=== PATIENT | male | born 1945 | race Caucasian/White ===

== ENCOUNTER 2022-06-29 15:25 | Inpatient (IN) | payer MEDICAID, MEDICARE ==
[~2022-06-29] VITALS: Ht 162.6 cm; Wt 57.6 kg
[2022-06-29 16:19] VITALS: BP_SYST 157
[2022-06-29] MEDS ORDERED: NACL 0.9% 1,000 ML IV ONE (16:30)
[2022-06-29 16:52] LABS: BASOPHILS % (AUTO) 0.4 % (0.0-2.0); EOSINOPHILS % (AUTO) 0.2 % (0.0-4.0); HEMATOCRIT 33.6 % (36-54); HEMOGLOBIN 11.6 g/dL (14.0-18.0); LYMPHOCYTES # (AUTO) 0.9 K/uL (1.0-5.5); LYMPHOCYTES % (AUTO) 14.1 % (20.5-51.5); MEAN CORPUSCULAR HEMOGLOBIN 33 pg (27-31); MEAN CORPUSCULAR HGB CONC 35 % (32-36); MEAN CORPUSCULAR VOLUME 95 fL (79.0-98.0); MONOCYTES # (AUTO) 0.2 K/uL (0.0-1.0); MONOCYTES % (AUTO) 3.8 % (1.7-9.3); NEUTROPHILS # (AUTO) 5.3 K/uL (1.8-7.7); NEUTROPHILS % (AUTO) 81.5 % (40.0-70.0); PLATELET COUNT (AUTO) 363 K/uL (130-430); RED BLOOD CELL COUNT(AUTO) 3.54 MIL/uL (4.2-6.2); RED CELL DISTRIBUTION WIDTH 15.4 % (9.0-15.0); WHITE BLOOD COUNT (AUTO) 6.5 K/uL (4.8-10.8)
[2022-06-29 17:00] LABS: PROTHROMBIN TIME 10.1 SECS (9.5-12.5)
[2022-06-29 17:06] LABS: ALANINE AMINOTRANSFERASE 64 U/L (12-78); ALBUMIN 2.5 g/dL (3.4-4.8); ANION GAP 7 (5-15); ASPARTATE AMINOTRANSFERASE 40 U/L (10-37); CALCIUM 7.8 mg/dL (8.4-11.0); CHLORIDE 103 mmol/L (98-107); CREATININE 1.34 mg/dL (0.55-1.30); GLUCOSE 166 mg/dL (70-99); TOTAL BILIRUBIN 0.3 mg/dL (0.0-1.0); UREA NITROGEN, BLOOD 16 mg/dL (8-21)
[2022-06-29] MEDS ORDERED: DEXAMETHASONE SOD PHOSPHATE 10 MG/ML VIAL IVP ONE (20:15)
[2022-06-29] MEDS ORDERED: ALBUTEROL SULFATE 0.083% 2.5 MG/3 ML VIAL.NEB INH PRN (23:45)
[2022-06-30 00:08] LABS: BILIRUBIN,URINE NEGATIVE (NEGATIVE); BLOOD, URINE 1+ (NEGATIVE); CLARITY/URINE CLEAR (CLEAR); COLOR,URINE YELLOW (YELLOW); GLUCOSE,URINE NEGATIVE (NEGATIVE); KETONES,URINE NEGATIVE (NEGATIVE); LEUKOCYTE ESTERASE ,URINE NEGATIVE (NEGATIVE); NITRITE, URINE NEGATIVE (NEGATIVE); PROTEIN URINE NEGATIVE (NEGATIVE)
[2022-06-30] MEDS ORDERED: PRED10TA PO (00:39)
[2022-06-30] MEDS ORDERED: LOVI40 SQ (00:39)
[2022-06-30] MEDS ORDERED: NOR10 PO (00:39)
[2022-06-30] MEDS ORDERED: CLON0.1T PO (00:39)
[2022-06-30] MEDS ORDERED: PHEDM120 PO (00:39)
[2022-06-30] MEDS ORDERED: SSNOVOLOG SUBCUT (00:39)
[2022-06-30] MEDS ORDERED: ACET325T53 PO (00:39)
[2022-06-30 00:41] LABS: BACTERIA,URINE FEW /HPF (None Seen); MUCUS,URINE None Seen /LPF (None Seen); RBC,URINE 0-3 /HPF (0-3)
[2022-06-30 02:14] VITALS: BP_SYST 141
[2022-06-30 03:44] VITALS: BP_SYST 141
[2022-06-30 10:10] VITALS: BP_SYST 124
[2022-06-30 11:27] VITALS: BP_SYST 130
[2022-06-30] MEDS ORDERED: cloNIDine HCL 0.1 MG TABLET PO PRN (14:30)
[2022-06-30] MEDS ORDERED: ACETAMINOPHEN 325 MG TABLET PO PRN ×2 (14:30→16:15)
[2022-06-30] MEDS ORDERED: CHOLECALCIFEROL (VITAMIN D3) 5,000 UNIT TABLET PO ONE (15:45)
[2022-06-30 17:34] VITALS: BP_SYST 135
[2022-06-30] MEDS: DEXAMETHASONE SOD PHOSPHATE 10 MG/ML VIAL IVP SCH (17:50)
[2022-06-30] MEDS: AZITHROMYCIN 500 MG in NS 250 ML IV SCH (17:51)
[2022-06-30 20:00] VITALS: BP_SYST 133
[2022-06-30] MEDS: MEGESTROL ACETATE 400 MG/10 ML UDC PO SCH (21:26)
[2022-06-30] MEDS: ASCORBIC ACID 500 MG TABLET PO SCH (21:26)
[2022-06-30] MEDS: INSULIN REGULAR, HUMAN 100 UNITS/ML, 3 ML VIAL (humuLIN R) SUBCUT PRN (21:36)
[2022-07-01] VITALS: BP_SYST 131
[2022-07-01] MEDS: KCL 20 mEq in 0.45% NS 1000 mL 1,000 ML IV SCH ×4 (02:00→21:37)
[2022-07-01] MEDS ORDERED: ALBUTEROL MDI INHALATION 8 GM INH INH PRN (06:30)
[2022-07-01 07:54] LABS: BASOPHILS % (AUTO) 0.1 % (0.0-2.0); HEMATOCRIT 31.2 % (36-54); HEMOGLOBIN 10.3 g/dL (14.0-18.0); LYMPHOCYTES # (AUTO) 1.2 K/uL (1.0-5.5); LYMPHOCYTES % (AUTO) 7.7 % (20.5-51.5); MEAN CORPUSCULAR HEMOGLOBIN 32 pg (27-31); MEAN CORPUSCULAR HGB CONC 33 % (32-36); MEAN CORPUSCULAR VOLUME 98 fL (79.0-98.0); MONOCYTES # (AUTO) 0.3 K/uL (0.0-1.0); MONOCYTES % (AUTO) 2.3 % (1.7-9.3); NEUTROPHILS # (AUTO) 13.7 K/uL (1.8-7.7); NEUTROPHILS % (AUTO) 89.9 % (40.0-70.0); PLATELET COUNT (AUTO) 352 K/uL (130-430); RED BLOOD CELL COUNT(AUTO) 3.17 MIL/uL (4.2-6.2); RED CELL DISTRIBUTION WIDTH 15.6 % (9.0-15.0); WHITE BLOOD COUNT (AUTO) 15.2 K/uL (4.8-10.8)
[2022-07-01 08:00] VITALS: BP_SYST 163
[2022-07-01 08:32] LABS: ANION GAP 9 (5-15); CALCIUM 8.3 mg/dL (8.4-11.0); CHLORIDE 107 mmol/L (98-107); CREATININE 1.27 mg/dL (0.55-1.30); GLUCOSE 121 mg/dL (70-99); UREA NITROGEN, BLOOD 24 mg/dL (8-21)
[2022-07-01] MEDS ORDERED: predniSONE 10 MG TABLET PO SCH (09:00)
[2022-07-01] MEDS: amLODIPine BESYLATE 10 MG TABLET PO SCH (10:40)
[2022-07-01] MEDS: ENOXAPARIN SODIUM 40 MG/0.4 ML SYRINGE SQ SCH (10:41)
[2022-07-01] MEDS: CHOLECALCIFEROL (VITAMIN D3) 5,000 UNIT TABLET PO SCH (10:41)
[2022-07-01] MEDS: FAMOTIDINE 20 MG TABLET PO SCH (10:41)
[2022-07-01] MEDS: MEGESTROL ACETATE 400 MG/10 ML UDC PO SCH ×2 (10:41→21:36)
[2022-07-01] MEDS: ASCORBIC ACID 500 MG TABLET PO SCH ×2 (10:41→21:36)
[2022-07-01 12:00] VITALS: BP_SYST 112
[2022-07-01 16:59] VITALS: BP_SYST 116
[2022-07-01] MEDS: DEXAMETHASONE SOD PHOSPHATE 10 MG/ML VIAL IVP SCH (17:04)
[2022-07-01] MEDS: AZITHROMYCIN 500 MG in NS 250 ML IV SCH (17:05)
[2022-07-01 20:30] VITALS: BP_SYST 137
[2022-07-01] MEDS: INSULIN REGULAR, HUMAN 100 UNITS/ML, 3 ML VIAL (humuLIN R) SUBCUT PRN (21:38)
[2022-07-02 01:15] VITALS: BP_SYST 119
[2022-07-02 08:00] VITALS: BP_SYST 154
[2022-07-02] MEDS: FAMOTIDINE 20 MG TABLET PO SCH (10:28)
[2022-07-02] MEDS: MEGESTROL ACETATE 400 MG/10 ML UDC PO SCH ×2 (10:28→23:26)
[2022-07-02] MEDS: ASCORBIC ACID 500 MG TABLET PO SCH ×2 (10:29→23:27)
[2022-07-02] MEDS: ENOXAPARIN SODIUM 40 MG/0.4 ML SYRINGE SQ SCH (10:29)
[2022-07-02] MEDS: CHOLECALCIFEROL (VITAMIN D3) 5,000 UNIT TABLET PO SCH (10:29)
[2022-07-02] MEDS: KCL 20 mEq in 0.45% NS 1000 mL 1,000 ML IV SCH ×2 (10:32→17:30)
[2022-07-02] MEDS: amLODIPine BESYLATE 10 MG TABLET PO SCH (10:33)
[2022-07-02 11:25] VITALS: BP_SYST 149
[2022-07-02 15:26] VITALS: BP_SYST 114
[2022-07-02] MEDS: DEXAMETHASONE SOD PHOSPHATE 10 MG/ML VIAL IVP SCH (15:40)
[2022-07-02] MEDS: AZITHROMYCIN 500 MG in NS 250 ML IV SCH (15:41)
[2022-07-02 16:00] VITALS: BP_SYST 131
[2022-07-02 20:30] VITALS: BP_SYST 141
[2022-07-03 01:00] VITALS: BP_SYST 135
[2022-07-03] MEDS: KCL 20 mEq in 0.45% NS 1000 mL 1,000 ML IV SCH ×2 (06:05→19:22)
[2022-07-03 06:30] LABS: BASOPHILS % (AUTO) 0.3 % (0.0-2.0); HEMATOCRIT 37.2 % (36-54); HEMOGLOBIN 12.4 g/dL (14.0-18.0); LYMPHOCYTES # (AUTO) 1.4 K/uL (1.0-5.5); LYMPHOCYTES % (AUTO) 12.7 % (20.5-51.5); MEAN CORPUSCULAR HEMOGLOBIN 32 pg (27-31); MEAN CORPUSCULAR HGB CONC 33 % (32-36); MEAN CORPUSCULAR VOLUME 97 fL (79.0-98.0); MONOCYTES # (AUTO) 0.3 K/uL (0.0-1.0); MONOCYTES % (AUTO) 2.5 % (1.7-9.3); NEUTROPHILS # (AUTO) 9.1 K/uL (1.8-7.7); NEUTROPHILS % (AUTO) 84.5 % (40.0-70.0); PLATELET COUNT (AUTO) 345 K/uL (130-430); RED BLOOD CELL COUNT(AUTO) 3.83 MIL/uL (4.2-6.2); RED CELL DISTRIBUTION WIDTH 15.6 % (9.0-15.0)
[2022-07-03 06:36] LABS: ANION GAP 8 (5-15); CALCIUM 8.7 mg/dL (8.4-11.0); CHLORIDE 106 mmol/L (98-107); CREATININE 1.09 mg/dL (0.55-1.30); GLUCOSE 128 mg/dL (70-99); UREA NITROGEN, BLOOD 26 mg/dL (8-21)
[2022-07-03 07:29] LABS: WHITE BLOOD COUNT (AUTO) 10.7 K/uL (4.8-10.8)
[2022-07-03 08:45] VITALS: BP_SYST 160
[2022-07-03] MEDS: ENOXAPARIN SODIUM 40 MG/0.4 ML SYRINGE SQ SCH (09:41)
[2022-07-03] MEDS: CHOLECALCIFEROL (VITAMIN D3) 5,000 UNIT TABLET PO SCH (09:42)
[2022-07-03] MEDS: ASCORBIC ACID 500 MG TABLET PO SCH ×2 (09:42→22:58)
[2022-07-03] MEDS: amLODIPine BESYLATE 10 MG TABLET PO SCH (09:43)
[2022-07-03] MEDS: FAMOTIDINE 20 MG TABLET PO SCH (09:43)
[2022-07-03] MEDS: MEGESTROL ACETATE 400 MG/10 ML UDC PO SCH ×2 (09:45→22:58)
[2022-07-03 13:06] VITALS: BP_SYST 155
[2022-07-03 18:09] VITALS: BP_SYST 160
[2022-07-03] MEDS: DEXAMETHASONE SOD PHOSPHATE 10 MG/ML VIAL IVP SCH (19:20)
[2022-07-03] MEDS: AZITHROMYCIN 500 MG in NS 250 ML IV SCH (19:22)
[2022-07-03 20:00] VITALS: BP_SYST 121; BP_SYST 146
[2022-07-03] MEDS: LOSARTAN POTASSIUM 50 MG TABLET (COZAAR) PO SCH (22:59)
[2022-07-04] VITALS: BP_SYST 143
[2022-07-04] MEDS: KCL 20 mEq in 0.45% NS 1000 mL 1,000 ML IV SCH ×4 (05:59→20:00)
[2022-07-04 08:00] VITALS: BP_SYST 140
[2022-07-04] MEDS: MEGESTROL ACETATE 400 MG/10 ML UDC PO SCH ×2 (10:20→21:09)
[2022-07-04] MEDS: ASCORBIC ACID 500 MG TABLET PO SCH ×2 (10:21→20:47)
[2022-07-04] MEDS: FAMOTIDINE 20 MG TABLET PO SCH (10:21)
[2022-07-04] MEDS: LOSARTAN POTASSIUM 50 MG TABLET (COZAAR) PO SCH ×2 (10:21→21:02)
[2022-07-04] MEDS: amLODIPine BESYLATE 10 MG TABLET PO SCH (10:22)
[2022-07-04] MEDS: ENOXAPARIN SODIUM 40 MG/0.4 ML SYRINGE SQ SCH (10:22)
[2022-07-04] MEDS: CHOLECALCIFEROL (VITAMIN D3) 5,000 UNIT TABLET PO SCH (10:22)
[2022-07-04 11:35] VITALS: BP_SYST 125
[2022-07-04] MEDS: INSULIN REGULAR, HUMAN 100 UNITS/ML, 3 ML VIAL (humuLIN R) SUBCUT PRN ×2 (11:59→21:27)
[2022-07-04] MEDS: AZITHROMYCIN 500 MG in NS 250 ML IV SCH (15:58)
[2022-07-04] MEDS: DEXAMETHASONE SOD PHOSPHATE 10 MG/ML VIAL IVP SCH (15:58)
[2022-07-04 16:46] VITALS: BP_SYST 124
[2022-07-04 20:00] VITALS: BP_SYST 121
[2022-07-05 00:44] VITALS: BP_SYST 138
[2022-07-05] MEDS: KCL 20 mEq in 0.45% NS 1000 mL 1,000 ML IV SCH ×2 (05:32→16:14)
[2022-07-05 08:57] VITALS: BP_SYST 149
[2022-07-05] MEDS: FAMOTIDINE 20 MG TABLET PO SCH (09:02)
[2022-07-05] MEDS: ENOXAPARIN SODIUM 40 MG/0.4 ML SYRINGE SQ SCH (09:02)
[2022-07-05] MEDS: LOSARTAN POTASSIUM 50 MG TABLET (COZAAR) PO SCH ×2 (09:02→21:35)
[2022-07-05] MEDS: CHOLECALCIFEROL (VITAMIN D3) 5,000 UNIT TABLET PO SCH (09:02)
[2022-07-05] MEDS: amLODIPine BESYLATE 10 MG TABLET PO SCH (09:03)
[2022-07-05] MEDS: MEGESTROL ACETATE 400 MG/10 ML UDC PO SCH ×2 (09:03→21:34)
[2022-07-05] MEDS: ASCORBIC ACID 500 MG TABLET PO SCH ×2 (09:03→21:35)
[2022-07-05 11:06] VITALS: BP_SYST 142
[2022-07-05] MEDS: INSULIN REGULAR, HUMAN 100 UNITS/ML, 3 ML VIAL (humuLIN R) SUBCUT PRN ×2 (11:53→21:48)
[2022-07-05] MEDS: DEXAMETHASONE SOD PHOSPHATE 10 MG/ML VIAL IVP SCH (16:15)
[2022-07-05 17:04] VITALS: BP_SYST 140
[2022-07-06] VITALS: BP_SYST 137
[2022-07-06] MEDS: KCL 20 mEq in 0.45% NS 1000 mL 1,000 ML IV SCH ×2 (05:17→11:33)
[2022-07-06 08:00] VITALS: BP_SYST 140
[2022-07-06] MEDS: ASCORBIC ACID 500 MG TABLET PO SCH ×2 (09:48→21:03)
[2022-07-06] MEDS: MEGESTROL ACETATE 400 MG/10 ML UDC PO SCH ×2 (09:48→21:03)
[2022-07-06] MEDS: CHOLECALCIFEROL (VITAMIN D3) 5,000 UNIT TABLET PO SCH (09:49)
[2022-07-06] MEDS: FAMOTIDINE 20 MG TABLET PO SCH (09:49)
[2022-07-06] MEDS: LOSARTAN POTASSIUM 50 MG TABLET (COZAAR) PO SCH ×2 (09:50→21:03)
[2022-07-06] MEDS: amLODIPine BESYLATE 10 MG TABLET PO SCH (09:51)
[2022-07-06] MEDS: ENOXAPARIN SODIUM 40 MG/0.4 ML SYRINGE SQ SCH (10:21)
[2022-07-06 11:36] VITALS: BP_SYST 146
[2022-07-06 12:08] VITALS: BP_SYST 146
[2022-07-06 15:34] VITALS: BP_SYST 122
[2022-07-06 19:25] VITALS: BP_SYST 153
[2022-07-06] MEDS: NYSTATIN 500,000 UNITS/5 ML UDC PO SCH (21:03)
[2022-07-06] MEDS: INSULIN REGULAR, HUMAN 100 UNITS/ML, 3 ML VIAL (humuLIN R) SUBCUT PRN (21:16)
[2022-07-07 00:39] VITALS: BP_SYST 142
[2022-07-07 08:00] VITALS: BP_SYST 148
[2022-07-07] MEDS: ENOXAPARIN SODIUM 40 MG/0.4 ML SYRINGE SQ SCH (09:00)
[2022-07-07] MEDS: FAMOTIDINE 20 MG TABLET PO SCH (09:59)
[2022-07-07] MEDS: MEGESTROL ACETATE 400 MG/10 ML UDC PO SCH ×2 (10:00→21:34)
[2022-07-07] MEDS: NYSTATIN 500,000 UNITS/5 ML UDC PO SCH ×2 (10:00→21:34)
[2022-07-07] MEDS: LOSARTAN POTASSIUM 50 MG TABLET (COZAAR) PO SCH ×2 (10:00→21:00)
[2022-07-07] MEDS: amLODIPine BESYLATE 10 MG TABLET PO SCH (10:01)
[2022-07-07] MEDS: CHOLECALCIFEROL (VITAMIN D3) 5,000 UNIT TABLET PO SCH (10:01)
[2022-07-07] MEDS: ASCORBIC ACID 500 MG TABLET PO SCH ×2 (10:01→21:34)
[2022-07-07 11:35] VITALS: BP_SYST 127
[2022-07-07 15:34] VITALS: BP_SYST 132
[2022-07-07 19:55] VITALS: BP_SYST 133
[2022-07-07] MEDS: INSULIN REGULAR, HUMAN 100 UNITS/ML, 3 ML VIAL (humuLIN R) SUBCUT PRN (21:43)
[2022-07-08 01:48] VITALS: BP_SYST 136
[2022-07-08 07:51] LABS: BASOPHILS % (AUTO) 0.2 % (0.0-2.0); EOSINOPHILS % (AUTO) 0.3 % (0.0-4.0); HEMOGLOBIN 12.9 g/dL (14.0-18.0); LYMPHOCYTES # (AUTO) 1.7 K/uL (1.0-5.5); LYMPHOCYTES % (AUTO) 11.6 % (20.5-51.5); MEAN CORPUSCULAR HEMOGLOBIN 33 pg (27-31); MEAN CORPUSCULAR HGB CONC 33 % (32-36); MEAN CORPUSCULAR VOLUME 99 fL (79.0-98.0); MONOCYTES # (AUTO) 1.3 K/uL (0.0-1.0); MONOCYTES % (AUTO) 9.1 % (1.7-9.3); NEUTROPHILS # (AUTO) 11.7 K/uL (1.8-7.7); NEUTROPHILS % (AUTO) 78.8 % (40.0-70.0); PLATELET COUNT (AUTO) 182 K/uL (130-430); RED BLOOD CELL COUNT(AUTO) 3.95 MIL/uL (4.2-6.2); RED CELL DISTRIBUTION WIDTH 16.3 % (9.0-15.0); WHITE BLOOD COUNT (AUTO) 14.9 K/uL (4.8-10.8)
[2022-07-08 08:14] LABS: ALANINE AMINOTRANSFERASE 73 U/L (12-78); ALBUMIN 2.4 g/dL (3.4-4.8); ANION GAP 7 (5-15); ASPARTATE AMINOTRANSFERASE 46 U/L (10-37); CALCIUM 8.3 mg/dL (8.4-11.0); CHLORIDE 107 mmol/L (98-107); CREATININE 1.08 mg/dL (0.55-1.30); GLUCOSE 99 mg/dL (70-99); TOTAL BILIRUBIN 0.5 mg/dL (0.0-1.0); UREA NITROGEN, BLOOD 30 mg/dL (8-21)
[2022-07-08] MEDS: ENOXAPARIN SODIUM 40 MG/0.4 ML SYRINGE SQ SCH (09:05)
[2022-07-08] MEDS: FAMOTIDINE 20 MG TABLET PO SCH (09:06)
[2022-07-08] MEDS: LOSARTAN POTASSIUM 50 MG TABLET (COZAAR) PO SCH ×2 (09:06→21:00)
[2022-07-08] MEDS: ASCORBIC ACID 500 MG TABLET PO SCH ×2 (09:08→21:00)
[2022-07-08] MEDS: amLODIPine BESYLATE 10 MG TABLET PO SCH (09:08)
[2022-07-08] MEDS: CHOLECALCIFEROL (VITAMIN D3) 5,000 UNIT TABLET PO SCH (09:08)
[2022-07-08] MEDS: MEGESTROL ACETATE 400 MG/10 ML UDC PO SCH ×2 (09:09→21:00)
[2022-07-08] MEDS: NYSTATIN 500,000 UNITS/5 ML UDC PO SCH ×2 (09:09→21:00)
[2022-07-08 10:26] VITALS: BP_SYST 162
[2022-07-08 12:59] VITALS: BP_SYST 111
[2022-07-08 16:50] VITALS: BP_SYST 143
[2022-07-08 20:00] VITALS: BP_SYST 128
[2022-07-09] VITALS: BP_SYST 142
[2022-07-09] MEDS: NYSTATIN 500,000 UNITS/5 ML UDC PO SCH (09:00)
[2022-07-09] MEDS: MEGESTROL ACETATE 400 MG/10 ML UDC PO SCH (10:25)
[2022-07-09] MEDS: CHOLECALCIFEROL (VITAMIN D3) 5,000 UNIT TABLET PO SCH (10:26)
[2022-07-09] MEDS: ENOXAPARIN SODIUM 40 MG/0.4 ML SYRINGE SQ SCH (10:26)
[2022-07-09] MEDS: amLODIPine BESYLATE 10 MG TABLET PO SCH (10:27)
[2022-07-09] MEDS: LOSARTAN POTASSIUM 50 MG TABLET (COZAAR) PO SCH (10:27)
[2022-07-09] MEDS: ASCORBIC ACID 500 MG TABLET PO SCH (10:28)
[2022-07-09] MEDS: FAMOTIDINE 20 MG TABLET PO SCH (10:28)
[2022-07-09 11:10] VITALS: BP_SYST 133
[2022-07-09] MEDS: INSULIN REGULAR, HUMAN 100 UNITS/ML, 3 ML VIAL (humuLIN R) SUBCUT PRN (11:59)
[2022-07-09 12:39] VITALS: BP_SYST 133
[2022-07-09 15:42] VITALS: BP_SYST 133
[2022-07-09 16:54] VITALS: BP_SYST 105
== END 2022-07-09 17:05 | DRG 137 ==
LOC: SED 15:25 → STU 22:39 → SMU 07-04 11:23
PROVIDERS: ADMIT Family Medicine; ATTEND Family Medicine
PROC: XW033E5 Introduction of Remdesivir Anti-infective into Peripheral Vein, Percutaneous Approach, New Technology Group 5 (ICD-10-PCS; principal; 2022-06-29)
DX: U07.1 COVID-19 (principal); G93.41 Metabolic encephalopathy; E44.0 Moderate protein-calorie malnutrition; B37.0 Candidal stomatitis; E11.9 Type 2 diabetes mellitus without complications; I48.0 Paroxysmal atrial fibrillation; Z68.21 Body mass index [BMI] 21.0-21.9, adult; E86.0 Dehydration; I10 Essential (primary) hypertension; Z86.73 Personal history of transient ischemic attack (TIA), and cerebral infarction without residual deficits; Z88.0 Allergy status to penicillin
CPT/HCPCS: 36415; 71045; 80048; 80053; 81000; 82962; 83605; 83735; 84484; 85025; 85610-TC; 85730-TC; 87040; 87081; 87086; 93005; 94760; 96361; 96374; 99285; G0378; J0456; J1100; J1650; J1815; J3480; J7050